=== PATIENT | female | born 1935 | race American Indian/Alaskan Native ===

== ENCOUNTER 2017-07-19 11:37 | Emergency (ER) | payer MEDICARE ==
--- NOTE | 2017-07-19 13:13 | Emergency Department Report ---
Blank Doc - Documentation Documentation: Patient is a 82-year-old -Iranian female who is presenting with discomfort and spotting after having her last pessary ring placed. Patient states that he was placed on April 10 she's had more discomfort than she normally would and had some bleeding that was heavy initially and now spotting. Patient will be moved to the treatment room for pelvic exam and urinalysis will be collected as well.
[2017-07-19 14:06] LABS: Bacteria,Urine 1+ /HPF (Negative); Bilirubin,Urine NEG (Negative); Blood,Urine SM (Negative); Color,Urine Yellow (Yellow); Urobilinogen,Urine < 2.0 mg/dL (<2.0); WBC,Urine > 182.0 /HPF (0.0-6.0)
--- NOTE | 2017-07-19 14:59 | Emergency Department Report ---
ED Female HPI - General Chief complaint: Urogenital-Female Stated complaint: I NEED TO SEE A UROLOGIST Time Seen by Provider: 07/19/17 13:05 Source: patient Mode of arrival: Ambulatory Limitations: No Limitations - History of Present Illness Initial comments: Patient is a 82-year-old -Greek female who is presenting with discomfort and spotting after having her last pessary ring placed. Patient states that he was placed on April 10 she's had more discomfort than she normally would and had some bleeding that was heavy initially and now spotting. She reports pelvic pain 6 out of 10 that comes and go and cramp in but denies any back pain.. Denies any urinary burning frequency or urgency. Denies any fever or chills. Denies any nausea or vomiting. Nothing makes pain better and nothing makes it worse. No medication taken. Patient does have a urologist and she states that she tried to call them but could not get them so she came to the emergency room to check to make sure that her pessary is in place. MD Complaint: vaginal bleeding (spotting), pelvic pain Onset/Timin -: days(s) Location: suprapubic Radiation: non-radiating Severity: moderate Severity scale (0 -10): 6 Quality: cramping Consistency: intermittent Improves with: none Worsens with: none Are you Now?: No Associated Symptoms: vaginal bleeding, abdominal pain. denies: vaginal discharge, nausea/vomiting, fever/chills, headaches, loss of appetite, dysuria, hematuria, rash, seizure, shortness of breath, syncope, weakness - Related Data Sexually active: No Previous Rx's Medication Instructions Recorded Last Taken Type Azithromycin [Zithromax] 500 mg PO QDAY #3 tablet 08/22/13 Unknown Rx Levofloxacin [Levaquin] 750 mg PO Q48HR 7 Days #6 tablet 07/19/17 Unknown Rx Allergies Allergy/AdvReac Type Severity Reaction Status Date / Time Sulfa (Sulfonamide Allergy Hives Verified 07/19/17 11:58 Antibiotics) ED Review of Systems ROS: Stated complaint: I NEED TO SEE A UROLOGIST Other details as noted in HPI Comment: All other systems reviewed and negative Constitutional: no symptoms reported Respiratory: no symptoms reported Cardiovascular: denies: chest pain, palpitations, dyspnea on exertion, edema, syncope, paroxysmal nocturnal dyspnea Gastrointestinal: abdominal pain, other (vaginal spotting). denies: nausea, vomiting, diarrhea, constipation, hematemesis, melena, hematochezia Genitourinary: hematuria. denies: urgency, dysuria, frequency, discharge, abnormal menses, dyspareunia Musculoskeletal: denies: back pain, joint swelling, arthralgia, myalgia Skin: denies: rash Neurological: denies: headache, weakness, numbness, paresthesias, confusion, abnormal gait, vertigo ED Past Medical Hx - Past Medical History Previous Medical History?: Yes Hx Hypertension: Yes Hx Renal Disease: Yes Additional medical history: Prolapsed bladder - Surgical History Past Surgical History?: Yes Additional Surgical History: hysterectomy - Family History Family history: no significant - Social History Smoking Status: Former Smoker Substance Use Type: None - Medications Home Medications: Home Medications Medication Instructions Recorded Confirmed Last Taken Type Azithromycin [Zithromax] 500 mg PO QDAY #3 tablet 08/22/13 Unknown Rx Levofloxacin [Levaquin] 750 mg PO Q48HR 7 Days #6 tablet 07/19/17 Unknown Rx ED Physical Exam - General Limitations: No Limitations General appearance: alert, in no apparent distress - Head Head exam: Present: atraumatic, normocephalic, normal inspection - Eye Eye exam: Present: normal appearance, PERRL, EOMI - ENT ENT exam: Present: normal exam, normal orophraynx, mucous membranes moist - Neck Neck exam: Present: normal inspection, full ROM. Absent: tenderness, meningismus, lymphadenopathy, thyromegaly - Respiratory Respiratory exam: Present: normal lung sounds bilaterally. Absent: respiratory distress, chest wall tenderness - Cardiovascular Cardiovascular Exam: Present: regular rate, normal rhythm, normal heart sounds. Absent: systolic murmur, diastolic murmur - GI/Abdominal GI/Abdominal exam: Present: soft, normal bowel sounds. Absent: distended, tenderness, guarding, rebound, rigid, organomegaly, mass, bruit, pulsatile mass , hernia - External exam: Present: normal external exam. Absent: erythema, swelling, lesions, lacerations, ecchymosis, bleeding Speculum exam: Present: normal speculum exam, other (pessary noted and in correct place. Patient is status post hysterectomy). Absent: erythema, vaginal discharge, vaginal bleeding, tissue, laceration - Extremities Exam Extremities exam: Present: normal inspection, full ROM, normal capillary refill , other (no clubbing, cyanosis or edema. +2 pulses all extremities and no neurovascular compromise.). Absent: tenderness, pedal edema, joint swelling, calf tenderness - Back Exam Back exam: Present: normal inspection, full ROM, other (ambulates without any difficulties). Absent: tenderness, CVA tenderness (R), CVA tenderness (L), muscle spasm, paraspinal tenderness, vertebral tenderness, rash noted - Neurological Exam Neurological exam: Present: alert, oriented X3, normal gait, reflexes normal. Absent: motor sensory deficit - Psychiatric Psychiatric exam: Present: normal affect, normal mood - Skin Skin exam: Present: warm, dry, intact, normal color. Absent: rash ED Course Vital Signs 07/19/17 11:51 Temperature 97.4 F L Pulse Rate 71 Respiratory 16 Rate Blood Pressure 169/79 O2 Sat by Pulse 98 Oximetry - Reevaluation(s) Reevaluation #1: 07/19/17 15:16 Patient given Levaquin 750 mg by mouth today for bladder infection. ED Medical Decision Making - Lab Data Lab Results 07/19/17 Range/Units 13:38 Urine Color Yellow (Yellow) Urine Turbidity Cloudy (Clear) Urine pH 6.0 (5.0-7.0) Ur Specific Stark 1.013 (1.003-1.030) Urine Protein 30 mg/dl (Negative) mg/dL Urine Glucose (UA) Neg (Negative) mg/dL Urine Ketones Neg (Negative) mg/dL Urine Blood Sm (Negative) Urine Nitrite Neg (Negative) Urine Bilirubin Neg (Negative) Urine Urobilinogen < 2.0 (<2.0) mg/dL Ur Leukocyte Esterase Lg (Negative) Urine WBC (Auto) > 182.0 H (0.0-6.0) /HPF Urine RBC (Auto) 25.0 (0.0-6.0) /HPF U Epithel Cells (Auto) 2.0 (0-13.0) /HPF Urine Bacteria (Auto) 1+ (Negative) /HPF Urine culture pending - Medical Decision Making ED course: An here report that she had pessary placed and she had some vaginal bleeding and when it was placed and now she is spotting on and off. Report that she was having pelvic pain that is cramping. Pelvic exam revealed pessary in correct place. No other maladies seen. Urinalysis revealed patient with acute hemorrhagic cystitis. This was explained to patient and she was understanding I discussed with her she will need to be placed on antibiotic for urinary tract infection. I discussed with her that she will also need to follow up with her primary care physician who is Dr. Jonn Mendoza on Sunday follow-up urinary tract infection. Patient is followed by Dr. Escobedo who is a [employer] systems safety engineer. She says she has chronic renal disease. Patient given Levaquin 750 mg by mouth and will be dosed with Levaquin every other day for 7 days. Discharged home with her family in stable condition Critical care attestation.: If time is entered above; I have spent that time in minutes in the direct care of this critically ill patient, excluding procedure time. ED Disposition Clinical Impression: Cystitis, acute hemorrhagic, Abdominal cramping, Vaginal pessary in situ Disposition: TO HOME OR SELFCARE Is pt being admited?: No Does the pt Need Aspirin: No Condition: Stable Instructions: Abdominal Pain (ED), Urinary Tract Infection in Women (ED) Additional Instructions: Please follow-up with your primary care physician in 4 days. Please call your rhic systems safety engineer for follow-up visit and let them know that you're placed on Levaquin for urinary tract infection 8 medication as prescribed. You're given your first dose of Levaquin today so he will need to take the next dose Sunday to 03/02/2018. This medication is still some taken every other day for 7 days. Prescriptions: Levofloxacin [Levaquin] 750 mg PO Q48HR 7 Days #6 tablet Referrals: INGRIS MENDOZA MD [Primary Care Provider] - 3-5 Days Your, nephrology [Other] - 07/20/17 Forms: Accompanied Note
[2017-07-19 15:12] VITALS: BP 123/84
[2017-07-19] MEDS ORDERED: LEVAQUIN PO ONE (15:13)
== END 2017-07-19 15:47 | disposition home or self-care (01) ==
LOC: ED 11:37
DX: N30.00 Acute cystitis without hematuria (principal); N93.9 Abnormal uterine and vaginal bleeding, unspecified; I12.9 Hypertensive chronic kidney disease with stage 1 through stage 4 chronic kidney disease, or unspecified chronic kidney disease; N18.9 Chronic kidney disease, unspecified; Z96.0 Presence of urogenital implants; Z90.710 Acquired absence of both cervix and uterus; Z87.891 Personal history of nicotine dependence; Z88.2 Allergy status to sulfonamides
CPT/HCPCS: 81001; 87086; 99283

== ENCOUNTER 2018-08-04 10:24 | Emergency (ER) | payer MEDICARE ==
[2018-08-04 10:34] VITALS: BP 151/80
--- NOTE | 2018-08-04 11:31 | Emergency Department Report ---
Chief Complaint: Urogenital-Female Stated Complaint: POSS UTI Time Seen by Provider: 08/04/18 11:30 - HPI History of Present Illness: elderly female with frequency at hs co urgency and dysuria ambulatory MSE complete - Exam Vital Signs: Vital Signs 08/04/18 10:31 Temperature 97.8 F Pulse Rate 75 Respiratory 20 Rate Blood Pressure 151/80 O2 Sat by Pulse 99 Oximetry MSE screening note: Focused history and physical exam performed. Due to findings the following was ordered: ED Disposition for MSE Condition: Stable
[2018-08-04 12:05] LABS: Hematocrit 29.8 % (30.3-42.9); Hemoglobin 9.8 gm/dl (10.1-14.3); Mean Corpuscular HGB Conc 33 % (30-34); Mean Corpuscular Volume 88 fl (79-97); Platelet Count 170 K/mm3 (140-440); Red Blood Count 3.39 M/mm3 (3.65-5.03); Red Cell Distribution Width 14.6 % (13.2-15.2)
[2018-08-04 12:28] LABS: Calcium 10.1 mg/dL (8.4-10.2)
[2018-08-04 13:34] LABS: Bilirubin,Urine Negative (Negative); Blood,Urine Negative (Negative); Color,Urine Yellow (Yellow); PH,Urine 5.5 (5.0-7.0)
[2018-08-04 13:35] LABS: Urobilinogen,Urine < 2.0 mg/dL (<2.0)
--- NOTE | 2018-08-04 14:23 | Emergency Department Report ---
ED Female HPI - General Chief complaint: Urogenital-Female Stated complaint: POSS UTI Time Seen by Provider: 08/04/18 11:30 Source: patient Mode of arrival: Ambulatory Limitations: No Limitations - History of Present Illness Initial comments: This is a 83-year-old female nontoxic, well nourished in appearance, no acute signs of distress presents to the ED with c/o of urinary frequency x2 days. Patient denies dysuria or hematuria. Patient denies any vaginal discharge, bleeding, ulcers or lesions. Patient denies any back pain. Patient denies any pelvic or abdominal pain. Patient denies any nausea, vomiting, chest pain, shortness of breathe, fever, chills, headache, back pain, numbness, tingling, stiff neck. Patient denies any other urinary symptoms. MD Complaint: other (urinary frequency) -: days(s) (2) Severity scale (0 -10): 0 Improves with: none Worsens with: none Associated Symptoms: denies other symptoms. denies: vaginal discharge, vaginal bleeding, abdominal pain, nausea/vomiting, fever/chills, headaches, loss of appetite, dysuria, hematuria, rash, seizure, shortness of breath, syncope, weakness - Related Data Previous Rx's Medication Instructions Recorded Last Taken Type Azithromycin [Zithromax TAB] 500 mg PO QDAY #3 tablet 08/22/13 Unknown Rx Famotidine [Pepcid] 20 mg PO BID #30 tablet 04/24/18 Unknown Rx Multivitamins Liq [Multiple 5 ml PO BID 30 Days oral.liqd 04/24/18 Unknown Rx Vitamin Liq (Theragran)] Allergies Allergy/AdvReac Type Severity Reaction Status Date / Time Sulfa (Sulfonamide Allergy Hives Verified 07/19/17 11:58 Antibiotics) ED Review of Systems ROS: Stated complaint: POSS UTI Other details as noted in HPI Constitutional: denies: chills, fever Eyes: denies: eye pain, eye discharge, vision change ENT: denies: ear pain, throat pain Respiratory: denies: cough, shortness of breath, wheezing Cardiovascular: denies: chest pain, palpitations Endocrine: no symptoms reported Gastrointestinal: denies: abdominal pain, nausea, diarrhea Genitourinary: frequency. denies: urgency, dysuria, hematuria, discharge Musculoskeletal: denies: back pain, joint swelling, arthralgia Skin: denies: rash, lesions Neurological: denies: headache, weakness, paresthesias Psychiatric: denies: anxiety, depression Hematological/Lymphatic: denies: easy bleeding, easy bruising ED Past Medical Hx - Past Medical History Hx Hypertension: Yes Hx Renal Disease: Yes Hx Arthritis: Yes (osteoarthritis, myelopathy) Additional medical history: Prolapsed bladder - Surgical History Past Surgical History?: Yes Additional Surgical History: hysterectomy - Social History Smoking Status: Never Smoker Substance Use Type: None - Medications Home Medications: Home Medications Medication Instructions Recorded Confirmed Last Taken Type Azithromycin [Zithromax TAB] 500 mg PO QDAY #3 tablet 08/22/13 Unknown Rx Famotidine [Pepcid] 20 mg PO BID #30 tablet 04/24/18 Unknown Rx Multivitamins Liq [Multiple 5 ml PO BID 30 Days oral.liqd 04/24/18 Unknown Rx Vitamin Liq (Theragran)] ED Physical Exam - General Limitations: No Limitations General appearance: alert, in no apparent distress - Head Head exam: Present: atraumatic, normocephalic - Neck Neck exam: Present: normal inspection, full ROM. Absent: tenderness, meningismus, lymphadenopathy - Respiratory Respiratory exam: Present: normal lung sounds bilaterally. Absent: respiratory distress, wheezes, rales, rhonchi, stridor, chest wall tenderness, accessory muscle use, decreased breath sounds, prolonged expiratory - Cardiovascular Cardiovascular Exam: Present: regular rate, normal rhythm, normal heart sounds. Absent: bradycardia, tachycardia, irregular rhythm, systolic murmur, diastolic murmur, rubs, gallop - GI/Abdominal GI/Abdominal exam: Present: soft, normal bowel sounds. Absent: distended, tenderness, guarding, rebound, rigid, diminished bowel sounds - Extremities Exam Extremities exam: Present: normal inspection, full ROM, normal capillary refill. Absent: tenderness - Back Exam Back exam: Present: normal inspection, full ROM. Absent: tenderness, CVA tenderness (R), CVA tenderness (L), muscle spasm, paraspinal tenderness, vertebral tenderness, rash noted - Neurological Exam Neurological exam: Present: alert, oriented X3 - Psychiatric Psychiatric exam: Present: normal affect, normal mood - Skin Skin exam: Present: warm, dry, intact, normal color. Absent: rash ED Course Vital Signs 08/04/18 10:31 Temperature 97.8 F Pulse Rate 75 Respiratory 20 Rate Blood Pressure 151/80 O2 Sat by Pulse 99 Oximetry - Reevaluation(s) Reevaluation #1: 08/04/18 14:22 Patient is speaking in full sentences with no signs of distress noted. ED Medical Decision Making - Lab Data Result diagrams: 08/04/18 11:52 08/04/18 11:52 - Medical Decision Making This is a 83-year-old female that presents with urinary frequency. Patient is stable and was examined by me. UA obtained unremarkbale. Labs unremarkable. Patient does not have any CVA tenderness. No signs or symptoms of pyelonephritis. Patient was instructed to Follow-up with a primary care doctor in 3-5 days or if symptoms worsen and continue return to emergency room as soon as possible. At time of discharge, the patient does not seem toxic or ill in appearance. No acute signs of distress noted. Patient agrees to discharge treatment plan of care. No further questions noted by the patient. Critical care attestation.: If time is entered above; I have spent that time in minutes in the direct care of this critically ill patient, excluding procedure time. ED Disposition Clinical Impression: Urinary frequency Disposition: DC-01 TO HOME OR SELFCARE Is pt being admited?: No Does the pt Need Aspirin: No Condition: Stable Additional Instructions: Follow-up with a primary care doctor in 3-5 days or if symptoms worsen and continue return to emergency room as soon as possible. Referrals: CODY RIOS MD [Primary Care Provider] - 3-5 Days PRIMARY MD MER [Referring] - 3-5 Days RENEA SOMERS MD [Staff Physician] - 3-5 Days [facility] [Outside] - 3-5 Days [facility] [Outside] - 3-5 Days
== END 2018-08-04 14:46 | disposition home or self-care (01) ==
LOC: ED 10:24
DX: R35.0 Frequency of micturition (principal); I10 Essential (primary) hypertension; M19.90 Unspecified osteoarthritis, unspecified site; Z90.710 Acquired absence of both cervix and uterus; Z79.899 Other long term (current) drug therapy; Z88.2 Allergy status to sulfonamides
CPT/HCPCS: 36415; 80048; 81001; 85027; 87086; 99283